=== PATIENT | female | born 1960 | race Caucasian/White ===

== ENCOUNTER 2022-02-20 17:37 | Emergency (ER) | payer BC, OTHER ==
[2022-02-20] VITALS (12 sets, daily range): BP systolic 135–179; BP diastolic 61–87
[~2022-02-20] VITALS: Ht 165.1 cm; Wt 68.1 kg
[~2022-02-20 17:37] MED LIST: AMOXICILLIN/CL875 MG PO; AMOXICILLIN500 MG PO; BACTRIM DS1 TAB PO; DOXYCYC MONO100 MG OR; FLEXERIL5 M1 PO; HYDROXYZ HCL25 MG PO; IBUPROFEN600 MG PO; KEFLEX500 MG PO; MEDDOSEPAK PO; MUCINEX600 MG PO; NAPROSYN500 MG PO; PREDNISONE20 MG PO; PROAIR HFA IN; SOLU-MEDROL125 MG IM; TRIAMCINOLON0.11 EX; ULTRAM50 M1 PO; ZYRTEC
[2022-02-20 18:46] LABS: URINE BILIRUBIN - DIPSTICK NEGATIVE (NEGATIVE); URINE BLOOD DIPSTICK LARGE (NEGATIVE); URINE COLOR YELLOW; URINE GLUCOSE - DIPSTICK NEGATIVE (NEGATIVE); URINE KETONE NEGATIVE (NEGATIVE); URINE PROTEIN - DIPSTICK >=300 mg/dL (NEG-TRACE); URINE SPECIFIC GRAVITY >=1.030; URINE UROBILINOGEN - DIPSTICK 0.2 E.U./dL (0.2)
[2022-02-20 19:00] LABS: URINE LEUK ESTERASE SMALL (NEGATIVE); URINE NITRITE - DIPSTICK POSITIVE (Negative)
[2022-02-20 19:05] LABS: URINE RBC 50-100 RBC/hpf (0-5); URINE WBC TNTC WBC/hpf (0-5)
[2022-02-20 20:08] LABS: HEMATOCRIT 43.6 % (37.0-47.0); HEMOGLOBIN 14.7 g/dl (12.0-16.0); IMMATURE GRANULOCYTES 0.1 % (0.0-5.0); MEAN CORPUSCULAR HGB 31.7 pG CALC (26.0-32.0); MEAN CORPUSCULAR HGB CONC 33.7 g/dL CAL (32.0-36.0); NEUT# 10.1 thou/uL (2.00-7.15); RED BLOOD COUNT 4.64 mill/uL (4.20-5.60); RED CELL DISTRI WIDTH 12.4 % (11.5-15.5)
[2022-02-20 20:23] LABS: ALBUMIN 4.5 g/dL (3.2-5.0); BILIRUBIN, TOTAL 0.4 mg/dL (0.0-1.4); CREATININE 1.2 mg/dL (0.5-1.0); POTASSIUM 4.3 mmol/l (3.5-5.1)
[2022-02-20] MEDS ORDERED: TORADOL PO (20:33)
[2022-02-20] MEDS ORDERED: CIPROFLOXACN500 MG PO (20:33)
== END 2022-02-20 21:30 | disposition home or self-care (01) | DRG 690 ==
LOC: ED 17:37
PROVIDERS: Emergency Medicine; Family Medicine
DX: N12 Tubulo-interstitial nephritis, not specified as acute or chronic (principal); F17.210 Nicotine dependence, cigarettes, uncomplicated; B96.20 Unspecified Escherichia coli [E. coli] as the cause of diseases classified elsewhere; Z87.442 Personal history of urinary calculi

== ENCOUNTER 2022-07-18 10:59 | Day surgery (SDC) | payer BC, OTHER ==
[~2022-07-18] VITALS: Ht 165.1 cm; Wt 70.8 kg
[~2022-07-18 10:59] MED LIST changes: +CIPROFLOXACN500 MG PO; +FISH OIL1 CAP PO; +MULTI VIT PO; +SLEEP AID50 MG PO; +TORADOL PO; +ZYRTEC10 M5 PO
[2022-07-18] MEDS ORDERED: [UNRECOGNIZED DRUG - OTHER] PO (11:13)
[2022-07-18 13:57] VITALS: BP 157/88
== END 2022-07-18 13:56 | disposition home or self-care (01) | DRG 661 ==
LOC: ORM 10:59
PROVIDERS: ATTEND Urology
PROC: 0T788DZ Dilation of Bilateral Ureters with Intraluminal Device, Via Natural or Artificial Opening Endoscopic (ICD-10-PCS; principal; 2022-07-18)
PROC: BT141ZZ Fluoroscopy of Kidneys, Ureters and Bladder using Low Osmolar Contrast (ICD-10-PCS; 2022-07-18)
DX: N13.1 Hydronephrosis with ureteral stricture, not elsewhere classified (principal); Z87.440 Personal history of urinary (tract) infections
CPT/HCPCS: C1769; J0131; J1956; Q9967

== ENCOUNTER 2022-08-15 06:40 | Day surgery (SDC) | payer BC, OTHER ==
[~2022-08-15] VITALS: Ht 165.1 cm; Wt 70.8 kg
[~2022-08-15 06:40] MED LIST changes: +[UNRECOGNIZED DRUG - OTHER] PO
[2022-08-15 11:03] VITALS: BP 144/90
== END 2022-08-15 11:25 | disposition home or self-care (01) | DRG 661 ==
LOC: ORM 06:40
PROVIDERS: ATTEND Urology
PROC: 0TN78ZZ Release Left Ureter, Via Natural or Artificial Opening Endoscopic (ICD-10-PCS; principal; 2022-08-15)
PROC: 0TN68ZZ Release Right Ureter, Via Natural or Artificial Opening Endoscopic (ICD-10-PCS; 2022-08-15)
PROC: 0T788DZ Dilation of Bilateral Ureters with Intraluminal Device, Via Natural or Artificial Opening Endoscopic (ICD-10-PCS; 2022-08-15)
PROC: BT141ZZ Fluoroscopy of Kidneys, Ureters and Bladder using Low Osmolar Contrast (ICD-10-PCS; 2022-08-15)
DX: N13.0 Hydronephrosis with ureteropelvic junction obstruction (principal); Z87.440 Personal history of urinary (tract) infections
CPT/HCPCS: J0131; J1956